=== PATIENT | male | born 1970 | race Two or more races ===

== ENCOUNTER 2020-03-13 11:43 | Day surgery (SDC) | payer OTHER | END 2020-03-13 15:40 | disposition home or self-care (01) | LOC: AMB-ENDOS 11:43 | PROVIDERS: ATTEND Surgery | DX: D12.0 Benign neoplasm of cecum (principal); K64.8 Other hemorrhoids ==

== ENCOUNTER 2021-01-29 05:47 | Day surgery (SDC) | payer OTHER | END 2021-01-29 13:30 | disposition home or self-care (01) | LOC: AMB-ENDOS 05:47 | PROVIDERS: ATTEND Surgery | DX: D12.0 Benign neoplasm of cecum (principal); Z20.822 Contact with and (suspected) exposure to COVID-19 ==

== ENCOUNTER → 2022-07-07 08:00 | Outpatient (CLI) | payer OTHER ==
[~2022-07-07] VITALS: Ht 190.5 cm; Wt 111.6 kg
[~2022-07-07 08:00] MED LIST: ACID REDUCER20 M1 PO; ALLEGRA ALLERG180 MG PO; BENADRYL25 MG PO; PEPCID AC20 MG PO
== END | disposition home or self-care (01) ==
LOC: LAB 08:00 → SURG 07-10 09:30 → EDSTATUS 07-10 09:30 → SURG 07-10 13:00
PROVIDERS: ATTEND Surgery
DX: Z03.818 Encounter for observation for suspected exposure to other biological agents ruled out (principal); Z20.822 Contact with and (suspected) exposure to COVID-19; D12.0 Benign neoplasm of cecum; D37.4 Neoplasm of uncertain behavior of colon

== ENCOUNTER 2023-07-06 08:15 | Inpatient (IN) | payer OTHER ==
[~2023-07-06] VITALS: Ht 190.5 cm; Wt 97.5 kg
[2023-07-06] MEDS ORDERED: ZESTRIL5 MG PO (14:55)
[2023-07-09] MEDS ORDERED: ALLERGY RELIEF180 MG (13:02)
[2023-07-09] MEDS ORDERED: OMEPRAZOLE20 MG (13:03)
[2023-07-09] MEDS ORDERED: FLONASE16 GM (13:03)
[2023-07-09] MEDS ORDERED: MONTELUKAST SOD10 MG (13:03)
[2023-07-09] MEDS ORDERED: FAMOTIDINE20 MG (13:03)
[2023-07-09 14:16] LABS: ABG PH 7.381 (7.35-7.45); ABG PO2 277.3 mmHg (80-100); ABG pCO2 40.5 mmHg (35-45); SaO2 99.9 %
[2023-07-09 14:17] LABS: BASE EXCESS -1.4 mmol/l; BICARBONATE 23.5 mmol/l (23-25); Tco2 24.8 mmol/l; o2 44 %
[2023-07-09 14:18] LABS: allen test SATISFACTORY; puncture site RADIAL RIGHT
[2023-07-09 14:57] LABS: HEMATOCRIT 39.3 % (39.0-48.0); MEAN CELL VOLUME 88.6 fL (80.0-100.00); MEAN CORPUSCULAR HEMOGLOBIN 31.6 pg (27.00-32.0); MEAN CORPUSCULAR HGB CONC 35.7 g/dl (32.0-36.0); RED BLOOD COUNT 4.43 M/uL (4.00-6.00); RED CELL DISTRIBUTION WIDTH 12.8 % (11.5-14.5)
[2023-07-09 15:01] LABS: PLATELET COUNT 130 K/uL (150-450)
[2023-07-09 15:11] LABS: ALBUMIN 3.6 gm/dL (3.4-5.0); CREATININE SERUM 1.12 mg/dL (0.70-1.30); GFR 68.58; PHOSPHOROUS 2.1 mg/dL (2.5-4.9); POTASSIUM 4.14 mEq/L (3.5-5.1)
[2023-07-10 07:24] LABS: ALBUMIN 3.6 gm/dL (3.4-5.0); CALCIUM 9.2 mg/dL (8.5-10.1); GFR 78.16; MAGNESIUM 2.1 mg/dL (1.8-2.4); POTASSIUM 4.18 mEq/L (3.5-5.1)
[2023-07-10 07:28] LABS: HEMATOCRIT 39.7 % (39.0-48.0); HEMOGLOBIN 14.2 g/dL (13-16.00); MEAN CELL VOLUME 88.8 fL (80.0-100.00); MEAN CORPUSCULAR HEMOGLOBIN 31.7 pg (27.00-32.0); MEAN CORPUSCULAR HGB CONC 35.8 g/dl (32.0-36.0); RED BLOOD COUNT 4.47 M/uL (4.00-6.00); RED CELL DISTRIBUTION WIDTH 12.6 % (11.5-14.5)
[2023-07-10 10:34] LABS: PLATELET COUNT 112 K/uL (150-450)
[2023-07-12] MEDS ORDERED: TRAM1TAB98 PO (11:43)
[2023-07-12] MEDS ORDERED: INTESTINEX680 M1 PO (11:43)
[2023-07-12] MEDS ORDERED: PEPCID AC20 MG PO (11:43)
== END 2023-07-12 13:30 | disposition home or self-care (01) | DRG 331 ==
LOC: O/R 07-09 07:30 → SURH 07-09 07:30
PROVIDERS: Internal Medicine Geriatric Medicine; ADMIT Surgery; ATTEND Surgery
PROC: 07BC4ZX Excision of Pelvis Lymphatic, Percutaneous Endoscopic Approach, Diagnostic (ICD-10-PCS; 2023-07-09)
PROC: 0DTF4ZZ Resection of Right Large Intestine, Percutaneous Endoscopic Approach (ICD-10-PCS; principal; 2023-07-09 14:30)
DX: D12.0 Benign neoplasm of cecum (principal); D37.4 Neoplasm of uncertain behavior of colon